=== PATIENT | male | born 1980 | race African-American/Black ===

== ENCOUNTER 2016-10-30 06:37 | Emergency (ER) | payer SELFPAY ==
[2016-10-30 06:52] VITALS: BP 130/82
[2016-10-30] MEDS ORDERED: Sodium Chloride 0.9% 10 ML Syringe FLUSH PRN (07:08)
[2016-10-30] MEDS ORDERED: Albuterol/Ipratropium 3.0-0.5 MG/3 ML Neb Soln NEB ONE (07:10)
[2016-10-30] MEDS ORDERED: Sodium Chloride 0.9% 1,000 ML IV SCH (07:15)
--- NOTE | 2016-10-30 07:38 | EDM.PDOC ---
ED HPI GENERAL MEDICAL PROBLEM - General Chief Complaint: Respiratory Problem Stated Complaint: DIFFICULTY BREATHING Time Seen by Provider: 10/30/16 06:54 Source of Information: Reports: Patient History Limitations: Reports: No Limitations - History of Present Illness INITIAL COMMENTS - FREE TEXT/NARRATIVE: The patient presents with shortness of breath and cough. This has been going on for about 8 months. He was diagnosed and treated for pneumonia back in March. He then went to [facility] in [facility]. He was there for a few months. He says he was not taking care of himself there. He was drinking more then he usually does. When he came back he got more short of breath, and he was admitted to [facility] for pneumonia. He improved and was released. He has a history of cycle cell disease. He had a crisis in July when he was admitted. He has a cough now but no real fever. He has shortness of breath and he needs to rest and catch his breath when he is working. He will also get lightheaded when he is working. 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 He has no abdominal pain, nausea or vomiting. He has some loose stools. This all started in March before he went to [facility]. He was working with a different company in March and there was no one else that got sick. Onset: Gradual Duration: Week(s): (Since March) Location: Reports: Chest Quality: Reports: Pressure Severity: Mild Improves with: Reports: None Worsens with: Reports: Movement Context: Reports: Activity Associated Symptoms: Reports: Chest Pain, Cough, cough w sputum, Shortness of Breath. Denies: Diaphoresis, Fever/Chills, Nausea/Vomiting - Related Data Allergies Allergy/AdvReac Type Severity Reaction Status Date / Time No Known Allergies Allergy Verified 10/30/16 06:52 Home Meds: Home Meds Albuterol [IJD: Albuterol HFA] 2 puff INH Q6HR PRN #8 gm 10/30/16 [Rx] Hydroxyurea 1,000 mg PO DAILY #60 capsule 10/30/16 [Rx] Levofloxacin [Levaquin] 750 mg PO DAILY #5 tablet 10/30/16 [Rx] Past Medical History HEENT History: Reports: None Cardiovascular History: Reports: None Respiratory History: Reports: Pneumonia, Recurrent Gastrointestinal History: Reports: None Genitourinary History: Reports: None Musculoskeletal History: Reports: None Neurological History: Reports: Headaches, Chronic Psychiatric History: Reports: None Endocrine/Metabolic History: Reports: None Hematologic History: Reports: Blood Transfusion(s), Sickle Cell Anemia Immunologic History: Reports: None Oncologic (Cancer) History: Reports: None Dermatologic History: Reports: Eczema Other Dermatologic History: Experiences only when home [facility] - Infectious Disease History Infectious Disease History: Reports: None - Past Surgical History GI Surgical History: Reports: None, Hernia, Inguinal Social & Family History - Family History Family Medical History: Noncontributory HEENT: Reports: None Hematologic: Reports: Sickle Cell Anemia - Tobacco Use Smoking Status *Q: Former Smoker Years of Tobacco use: 10 Packs/Tins Daily: 0.5 Used Tobacco, but Quit: Yes Month Tobacco Last Used: 2013 Second Hand Smoke Exposure: No - Caffeine Use Caffeine Use: Reports: None - Alcohol Use Days Per Week of Alcohol Use: 4 Number of Drinks Per Day: 1 Total Drinks Per Week: 4 - Recreational Drug Use Recreational Drug Use: No ED ROS GENERAL - Review of Systems Review Of Systems: See Below Constitutional: Reports: No Symptoms HEENT: Reports: No Symptoms Respiratory: Reports: Shortness of Breath, Cough, Sputum Cardiovascular: Reports: Chest Pain Endocrine: Reports: No Symptoms GI/Abdominal: Reports: No Symptoms : Reports: No Symptoms Musculoskeletal: Reports: No Symptoms Skin: Reports: No Symptoms ED EXAM, GENERAL - Physical Exam Exam: See Below Exam Limited By: No Limitations General Appearance: Alert, No Apparent Distress Ears: Normal External Exam Nose: Normal Inspection Head: Atraumatic, Normocephalic Neck: Normal Inspection Respiratory/Chest: No Respiratory Distress, Decreased Breath Sounds Cardiovascular: Regular Rate, Rhythm, No Edema, No Murmur GI/Abdominal: Soft, Non-Tender, No Organomegaly, No Mass Back Exam: Normal Inspection Extremities: Normal Inspection Neurological: Alert, Oriented, No Motor/Sensory Deficits Course - Vital Signs Last Recorded V/S: Last Vital Signs Temp 96.9 F 10/30/16 06:48 Pulse 99 10/30/16 06:48 Resp 12 10/30/16 06:48 BP 130/82 10/30/16 06:48 Pulse Ox 100 10/30/16 09:42 - Orders/Labs/Meds Orders: Active Orders 24 hr Category Date Time Status Cardiac Monitoring [RC] . DIRECTED Care 10/30/16 07:08 Active EKG Documentation Completion [RC] STAT Care 10/30/16 07:10 Active Oxygen Therapy [RC] PRN Care 10/30/16 07:09 Active Peripheral IV Care [RC] . DIRECTED Care 10/30/16 07:10 Active RT Aerosol Therapy [RC] ASDIRECTED Care 10/30/16 07:10 Active Chest 2V [CR] Stat Exams 10/30/16 07:10 Taken CULTURE BLOOD [BC] Stat Lab 10/30/16 07:35 Received CULTURE BLOOD [BC] Stat Lab 10/30/16 07:58 Received Sodium Chloride 0.9% [Normal Saline] 1,000 ml Med 10/30/16 07:15 Active IV ASDIRECTED Sodium Chloride 0.9% [Saline Flush] Med 10/30/16 07:08 Active 10 ml FLUSH ASDIRECTED PRN Blood Culture x2 Reflex Set [OM.PC] Stat Oth 10/30/16 07:10 Ordered Peripheral IV Insertion Adult [OM.PC] Stat Oth 10/30/16 07:08 Ordered Medication Orders Sodium Chloride (Normal Saline) 1,000 mls @ 125 mls/hr IV ASDIRECTED ROBYN Last Admin: 10/30/16 08:10 Dose: 125 mls/hr Sodium Chloride (Saline Flush) 10 ml FLUSH ASDIRECTED PRN PRN Reason: Keep Vein Open Last Admin: 10/30/16 08:10 Dose: 10 ml Labs: Laboratory Tests 10/30/16 10/30/16 10/30/16 Range/Units 07:35 07:35 07:35 WBC 14.11 H (4.23-9.07) K/mm3 RBC 4.49 L (4.63-6.08) M/mm3 Hgb 12.9 L (13.7-17.5) gm/L Hct 35.4 L (40.1-51.0) % MCV 78.8 L (79.0-92.2) fl MCH 28.7 (25.7-32.2) pg MCHC 36.4 H (32.2-35.5) g/dl RDW Std Deviation 52.5 H (35.1-43.9) fL Plt Count 405 H (163-337) K/mm3 MPV 9.7 (9.4-12.3) fl Neut % (Auto) 56.2 (34.0-67.9) % Lymph % (Auto) 30.8 (21.8-53.1) % [place] % (Auto) 10.8 (5.3-12.2) % Eos % (Auto) 1.5 (0.8-7.0) Baso % (Auto) 0.4 (0.1-1.2) % Neut # (Auto) 7.93 H (1.78-5.38) K/mm3 Lymph # (Auto) 4.34 H (1.32-3.57) K/mm3 [place] # (Auto) 1.53 H (0.30-0.82) K/mm3 Eos # (Auto) 0.21 (0.04-0.54) K/mm3 Baso # (Auto) 0.06 (0.01-0.08) K/mm3 Manual Slide Review Abnormal smear Sodium 140 (136-145) mEq/L Potassium 4.2 (3.5-5.1) mEq/L Chloride 106 (98-107) mEq/L Carbon Dioxide 23 (21-32) mEq/L Anion Gap 15.2 H (5-15) BUN 10 (7-18) mg/dL Creatinine 1.2 (0.7-1.3) mg/dL Est Cr Clr Drug Dosing 72.60 mL/min Estimated GFR (MDRD) > 60 (>60) mL/min BUN/Creatinine Ratio 8.3 L (14-18) Glucose 109 H (74-106) mg/dL Calcium 8.7 (8.5-10.1) mg/dL Total Bilirubin 5.9 H (0.2-1.0) mg/dL AST 50 H (15-37) U/L ALT 48 (16-63) U/L Alkaline Phosphatase 94 (46-116) U/L Troponin I 0.041 (0.00-0.056) ng/mL B-Natriuretic Peptide 47 (0-100) pg/mL Total Protein 8.5 H (6.4-8.2) g/dl Albumin 4.3 (3.4-5.0) g/dl Globulin 4.2 gm/dL Albumin/Globulin Ratio 1.0 (1-2) Meds: Medications Generic Name Dose Route Start Last Admin Trade Name Mami PRN Reason Stop Dose Admin Sodium Chloride 1,000 mls @ 125 mls/hr 10/30/16 07:15 10/30/16 08:10 Normal Saline IV 125 mls/hr ASDIRECTED ROBYN Administration Sodium Chloride 10 ml 10/30/16 07:08 10/30/16 08:10 Saline Flush FLUSH 10 ml ASDIRECTED PRN Administration Keep Vein Open Discontinued Medications Generic Name Dose Route Start Last Admin Trade Name Mami PRN Reason Stop Dose Admin Albuterol/Ipratropium 3 ml 10/30/16 07:10 10/30/16 07:32 Duoneb 3.0-0.5 Mg/3 Ml NEB 10/30/16 07:11 3 ml ONETIME ONE Administration Levofloxacin/Dextrose 750 mg/ 150 mls @ 100 mls/hr 10/30/16 08:53 10/30/16 09 :05 Premix IV 10/30/16 10:22 100 mls/hr ONETIME ONE Administration Sodium Chloride 1,000 mls @ 1,000 mls/hr 10/30/16 09:48 Normal Saline IV 10/30/16 10:47 ONETIME ONE - Re-Assessments/Exams Free Text/Narrative Re-Assessment/Exam: 10/30/16 07:40 I ordered an IV NS at 125ml/hr, oxygen at 2L, labs, CXR, EKG and blood cultures. I also ordered a duoneb. He had diminished lung sounds. While he was resting and talking to me his oxygen saturations dropped down to 88%. 10/30/16 10:23 His EKG shows a NSR at a rate of 91 with no acute changes. His CXR shows an increased density to the right perihilar region. His WBC was elevated at 14.11. His Hgb was a little low at 12.4. His platelets were elevated at 405. His anion gap was elevated at 15.2. His AST was slightly elevated at 50. I have ordered a fluid bolus and levaquin 750mg IV. I feel he needs to be admitted for pneumonia and hypoxia. He does not want to be admitted. I will monitor him here for a short time and I will see if I can get him some oxygen for home and I talked with Dr Calles and he recommended admission as well but he says if he does not want to come in I should put him on some hydroxyurea. He may be having troubles from the sickle cells from the high stress environment [place]. He also recommended following up with Dr Solorzano. Out heme/onc specialist at [place]. 10/30/16 11:51 Home health will bring him some oxygen for home. I will get him on some levaquin at home, albuterol and some hydroxyurea. Departure - Departure Time of Disposition: 12:00 Disposition: Home, Self-Care 01 Condition: good Clinical Impression: Hypoxia Pneumonia Qualifiers: Pneumonia type: due to unspecified organism Laterality: unspecified laterality Lung location: unspecified part of lung Qualified Code(s): J18.9 - Pneumonia, unspecified organism - Discharge Information Prescriptions: Albuterol [IJD: Albuterol HFA] 2 puff INH Q6HR PRN #8 gm PRN Reason: Shortness Of Breath Hydroxyurea 1,000 mg PO DAILY #60 capsule Levofloxacin [Levaquin] 750 mg PO DAILY #5 tablet Referrals: Melissa Grant MD [Ordering Only Provider] - 1 Week Forms: ED Department Discharge Additional Instructions: Take the levaquin daily for 5 days. Take the hydroxyurea 1,000mgs daily. Use the inhaler 2 puffs every 6 hours as needed for shortness of breath. Use the oxygen as much as you can. Follow up with Dr Grant at [facility]. Please return if you are worse. - My Orders Last 24 Hours: My Active Orders 10/30/16 07:08 Cardiac Monitoring [RC] . DIRECTED Sodium Chloride 0.9% [Saline Flush] 10 ml FLUSH ASDIRECTED PRN Peripheral IV Insertion Adult [OM.PC] Stat 10/30/16 07:09 Oxygen Therapy [RC] PRN 10/30/16 07:10 EKG Documentation Completion [RC] STAT Peripheral IV Care [RC] . DIRECTED RT Aerosol Therapy [RC] ASDIRECTED Chest 2V [CR] Stat Blood Culture x2 Reflex Set [OM.PC] Stat 10/30/16 07:15 Sodium Chloride 0.9% [Normal Saline] 1,000 ml IV ASDIRECTED 10/30/16 07:35 CULTURE BLOOD [BC] Stat 10/30/16 07:58 CULTURE BLOOD [BC] Stat - Assessment/Plan Last 24 Hours: My Active Orders 10/30/16 07:08 Cardiac Monitoring [RC] . DIRECTED Sodium Chloride 0.9% [Saline Flush] 10 ml FLUSH ASDIRECTED PRN Peripheral IV Insertion Adult [OM.PC] Stat 10/30/16 07:09 Oxygen Therapy [RC] PRN 10/30/16 07:10 EKG Documentation Completion [RC] STAT Peripheral IV Care [RC] . DIRECTED RT Aerosol Therapy [RC] ASDIRECTED Chest 2V [CR] Stat Blood Culture x2 Reflex Set [OM.PC] Stat 10/30/16 07:15 Sodium Chloride 0.9% [Normal Saline] 1,000 ml IV ASDIRECTED 10/30/16 07:35 CULTURE BLOOD [BC] Stat 10/30/16 07:58 CULTURE BLOOD [BC] Stat
[2016-10-30] MEDS ORDERED: Levofloxacin/Dextrose 5%-Water 750 MG in Premix Bag 1 BAG IV ONE (08:53)
[2016-10-30] MEDS ORDERED: Sodium Chloride 0.9% 1,000 ML IV ONE (09:48)
--- NOTE | 2016-11-01 09:34 | CR ---
Chest: Two views of the chest were obtained. Comparison: No previous study. Heart size and mediastinum are normal. Lungs are clear. Bony structures are within normal limits. Impression: 1. Nothing acute is identified on two-view chest x-ray. Diagnostic code #1
== END 2016-10-30 12:31 | disposition home or self-care (01) ==
LOC: JD.ED 06:37
DX: J18.9 Pneumonia, unspecified organism (principal); R09.02 Hypoxemia; Z98.890 Other specified postprocedural states; Z87.891 Personal history of nicotine dependence; Z79.2 Long term (current) use of antibiotics; Z79.899 Other long term (current) drug therapy
CPT/HCPCS: 36415; 71020; 80053; 83880; 84484; 85025; 87040; 93005; 94664; 96361; 96365; 96366; 99285; J1956; J7040; J7050; 99284